=== PATIENT | female | born 1975 | race Caucasian/White ===

== ENCOUNTER 2017-03-25 07:11 | Day surgery (SDC) | payer OTHER ==
--- NOTE | ~2017-03-25 | EGD ---
EGD REPORT [facility] [address] [address] NAME: YELITZA MELO ANN : [birth year] STATUS : REG [facility]#: [id number] AGE: 41 ADM/REG DATE : 03/25/17 MR#: [id number] REPORT SERV DATE: 03/25/17 DICTATED BY: BEST SOTO DATE: 03/25/17 REPORT STATUS : Draft TRANSCRIBED BY: [facility] DATE: 03/25/17 [facility] Center Patient Name: Yelitza Melo Date of : 1975 Attending MD: BEST SOTO MD Procedure Date No Time: 03/25/2017 Procedure: Colonoscopy Indications: Abdominal pain in the left lower quadrant, Rectal bleeding Referring MD: DARINEL NINA MD Medicines: as per anesthesia Complications: No immediate complications. Procedure: Pre-Anesthesia Assessment: - ASA Grade Assessment: III - A patient with severe systemic disease. After I obtained informed consent, the scope was passed under direct vision. Throughout the procedure, the patient's blood pressure, pulse, and oxygen saturations were monitored continuously. The PCF [id number] was introduced through the anus and advanced to the cecum, identified by appendiceal orifice and ileocecal valve. The colonoscopy was performed without difficulty. The patient tolerated the procedure. The quality of the bowel preparation was adequate to identify polyps. Findings: The perianal and digital rectal examinations were normal. Internal hemorrhoids were found during endoscopy and were mild. Impression: - Internal hemorrhoids. Recommendation: - Repeat colonoscopy in 10 years for surveillance. Procedure Code(s): --- Professional --- 57437, Colonoscopy, flexible, proximal to splenic flexure; diagnostic, with or without collection of specimen(s) by brushing or washing, with or without colon decompression (separate procedure) Diagnosis Code(s): --- Professional --- K64.8, Other hemorrhoids R10.32, Left lower quadrant pain K62.5, Hemorrhage of anus and rectum EGD REPORT [facility] [address] [address] NAME: YELITZA MELO ANN : [birth year] STATUS : REG [facility]#: [id number] AGE: 41 ADM/REG DATE : 03/25/17 MR#: [id number] REPORT SERV DATE: 03/25/17 DICTATED BY: BEST SOTO. DATE: 03/25/17 REPORT STATUS : Draft TRANSCRIBED BY: [employer] DATE: 03/25/17 CPT copyright 2013 [employer]. All rights reserved. The codes documented in this report are preliminary and upon lean process deployment consultant review may be revised to meet current compliance requirements. BEST SOTO MD 03/25/2017 9:09 AM This report has been signed electronically. Number of Addenda: 0 Note Initiated On: 03/24/2017 3:58 PM Scope Withdrawal Time 0 hours 6 minutes 8 seconds [address] [id number]
[~2017-03-25 07:11] MED LIST: ACET500CAP PO; ALLER-CHLOR4 MG OR; C5; CHLOR PO; CLARIT10 PO; COUMADIN7.5 MG PO; ELIQUIS 5 MG TAB5 MG PO; HARD NAILS PO; IBU-200200 MG PO; MULTI-VIT HP PO; OTC IRON PO; PHENYLEPHRIN10 MG OR; VITAMIN D31000 UNIT PO; ZITH250 PO; ZOCOR10 PO; ZOCOR20 PO
[2017-03-25 07:40] LABS: INTERNATIONAL NORMAL RATI 1.1 UNITS (-); PROTIME (NOT ORD) 13.9 SEC (12.0-14.5)
== END 2017-03-25 23:59 | disposition home or self-care (01) ==
LOC: DMU 07:11
PROVIDERS: Anesthesiology; Internal Medicine Gastroenterology
PROC: 0DJD8ZZ Inspection of Lower Intestinal Tract, Via Natural or Artificial Opening Endoscopic (ICD-10-PCS; principal; 2017-03-25 08:00)
DX: K64.8 Other hemorrhoids (principal); R10.32 Left lower quadrant pain; K62.5 Hemorrhage of anus and rectum; H54.41 Blindness, right eye, normal vision left eye; M19.90 Unspecified osteoarthritis, unspecified site; E78.00 Pure hypercholesterolemia, unspecified; Z86.73 Personal history of transient ischemic attack (TIA), and cerebral infarction without residual deficits; Z79.01 Long term (current) use of anticoagulants; Z90.710 Acquired absence of both cervix and uterus
CPT/HCPCS: 85610